=== PATIENT | female | born 1955 | race Caucasian/White ===

== ENCOUNTER 2020-03-30 00:08 | Day surgery (SDC) | payer BC, OTHER ==
[~2020-03-30 00:08] MED LIST: CAPE500 IV; CODACE30 PO; LISI20 PO; MORP15ER PO; NAPR220 PO; ONDA4 PO; OYSTER SHELL C500 MG PO; Vitamin D2000 UNIT PO
== END 2020-03-30 11:28 | disposition home or self-care (01) ==
LOC: ATC 00:08
DX: A40.8 Other streptococcal sepsis (principal); I33.0 Acute and subacute infective endocarditis; N17.9 Acute kidney failure, unspecified; K55.9 Vascular disorder of intestine, unspecified; E87.2 Acidosis; I95.9 Hypotension, unspecified; J96.91 Respiratory failure, unspecified with hypoxia; C50.919 Malignant neoplasm of unspecified site of unspecified female breast; C78.7 Secondary malignant neoplasm of liver and intrahepatic bile duct; C78.00 Secondary malignant neoplasm of unspecified lung; I10 Essential (primary) hypertension; Z87.891 Personal history of nicotine dependence; Z88.1 Allergy status to other antibiotic agents; K57.90 Diverticulosis of intestine, part unspecified, without perforation or abscess without bleeding; Z79.899 Other long term (current) drug therapy
CPT/HCPCS: 96365; J1335

== ENCOUNTER 2020-03-31 00:10 | Day surgery (SDC) | payer BC, OTHER | END 2020-03-31 10:32 | disposition home or self-care (01) | LOC: ATC 00:10 | DX: A40.8 Other streptococcal sepsis (principal); I33.0 Acute and subacute infective endocarditis; K55.9 Vascular disorder of intestine, unspecified; N17.9 Acute kidney failure, unspecified; E87.2 Acidosis; C50.919 Malignant neoplasm of unspecified site of unspecified female breast; C78.7 Secondary malignant neoplasm of liver and intrahepatic bile duct; C78.00 Secondary malignant neoplasm of unspecified lung; I95.9 Hypotension, unspecified; J96.91 Respiratory failure, unspecified with hypoxia; I10 Essential (primary) hypertension; Z87.891 Personal history of nicotine dependence; Z88.1 Allergy status to other antibiotic agents; Z79.899 Other long term (current) drug therapy | CPT/HCPCS: 96365; J1335 ==

== ENCOUNTER 2020-04-02 00:16 | Day surgery (SDC) | payer BC, OTHER | END 2020-04-02 10:29 | disposition home or self-care (01) | LOC: ATC 00:16 | DX: A40.8 Other streptococcal sepsis (principal); I33.0 Acute and subacute infective endocarditis; N17.9 Acute kidney failure, unspecified; K55.9 Vascular disorder of intestine, unspecified; E87.2 Acidosis; C50.919 Malignant neoplasm of unspecified site of unspecified female breast; C78.7 Secondary malignant neoplasm of liver and intrahepatic bile duct; C78.00 Secondary malignant neoplasm of unspecified lung; J96.91 Respiratory failure, unspecified with hypoxia; I10 Essential (primary) hypertension; Z87.891 Personal history of nicotine dependence; Z79.899 Other long term (current) drug therapy; Z88.1 Allergy status to other antibiotic agents; K57.30 Diverticulosis of large intestine without perforation or abscess without bleeding | CPT/HCPCS: 96365; J1335 ==

== ENCOUNTER 2020-04-03 00:19 | Day surgery (SDC) | payer BC, OTHER ==
[2020-04-03 11:10] LABS: BASOPHILS ABSOLUTE AUTO 0.06 K/mm3 (0.00-0.23); BASOPHILS PERCENT AUTO 1 % (0-2); EOSINOPHILS PERCENT AUTO 4 % (0-6); Hematocrit 27.7 % (33.0-51.0); IMMATURE GRAN ABSOLUTE AUTO 0.11 K/mm3 (0.00-0.10); IMMATURE GRAN PERCENT AUTO 2 % (0-1); LYMPHOCYTES ABSOLUTE AUTO 0.82 K/mm3 (0.84-5.20); LYMPHOCYTES PERCENT AUTO 15 % (21-46); MONOCYTES ABSOLUTE AUTO 0.52 K/mm3 (0.16-1.47); MONOCYTES PERCENT AUTO 10 % (4-13); Mean Corpuscular HGB Conc 32.5 g/dL (31.5-36.5); Mean Corpuscular Volume 105 fL (80-100); Mean Platelet Volume 8.9 fL (9.1-12.4); NEUTROPHILS ABSOLUTE AUTO 3.68 K/mm3 (1.96-9.15); NEUTROPHILS PERCENT AUTO 68 % (41-73); Platelet Count 238 K/mm3 (150-400); RDW Coefficient Variation 13.2 % (11.7-14.2); RDW Standard Deviation 50.1 fL (35.1-46.3); Red Blood Cell Count 2.65 M/mm3 (3.80-5.20); White Blood Cell Count 5.39 K/mm3 (4.00-11.30)
[2020-04-03 11:37] LABS: Alanine Aminotransfer (ALT/SGP 29 U/L (12-78); Albumin, Blood 2.5 g/dL (3.4-5.0); Albumin/Globulin Ratio 0.6 (0.8-1.8); Alk Phos 72 U/L (50-136); Aspartate Aminotrans (AST/SGOT 42 U/L (12-37); Bilirubin, Direct <0.1 mg/dL (0.0-0.3); Bilirubin, Indirect Unable to Calculate mg/dL (0.1-0.7); Bilirubin, Total 0.4 mg/dL (0.1-1.0); Blood Urea Nitrogen 12 mg/dL (8-24); Creatinine, Blood 0.94 mg/dL (0.40-1.00); Globulin, Blood 4.4 g/dL (2.2-4.0); Total Protein, Blood 6.9 g/dL (6.4-8.2)
--- NOTE | 2020-04-03 12:29 | NUR ---
LAB RESULTS FROM TODAY FAXED TO DR. MARSH'S OFFICE.
== END 2020-04-03 10:38 | disposition home or self-care (01) ==
LOC: ATC 00:19
DX: A40.8 Other streptococcal sepsis (principal); I33.0 Acute and subacute infective endocarditis; I95.9 Hypotension, unspecified; N17.9 Acute kidney failure, unspecified; E87.2 Acidosis; C50.919 Malignant neoplasm of unspecified site of unspecified female breast; C78.7 Secondary malignant neoplasm of liver and intrahepatic bile duct; C78.00 Secondary malignant neoplasm of unspecified lung; I10 Essential (primary) hypertension; K57.30 Diverticulosis of large intestine without perforation or abscess without bleeding; Z79.899 Other long term (current) drug therapy
CPT/HCPCS: 80076; 82565; 84520; 85025; 85651; 86140; 96365; J1335

== ENCOUNTER 2020-04-04 00:01 | Day surgery (SDC) | payer BC, OTHER | END 2020-04-04 10:40 | disposition home or self-care (01) | LOC: ATC 00:01 | DX: I33.0 Acute and subacute infective endocarditis (principal); I10 Essential (primary) hypertension; R73.03 Prediabetes; Z85.3 Personal history of malignant neoplasm of breast; Z79.899 Other long term (current) drug therapy; Z79.84 Long term (current) use of oral hypoglycemic drugs | CPT/HCPCS: 96365; J1335 ==

== ENCOUNTER 2020-04-05 00:13 | Day surgery (SDC) | payer BC, OTHER | END 2020-04-05 10:30 | disposition home or self-care (01) | LOC: ATC 00:13 | DX: I33.0 Acute and subacute infective endocarditis (principal); I10 Essential (primary) hypertension; R73.03 Prediabetes; Z85.3 Personal history of malignant neoplasm of breast; Z79.899 Other long term (current) drug therapy; Z79.84 Long term (current) use of oral hypoglycemic drugs | CPT/HCPCS: 96365; J1335 ==

== ENCOUNTER 2020-04-06 00:38 | Day surgery (SDC) | payer BC, OTHER | END 2020-04-06 10:35 | disposition home or self-care (01) | LOC: ATC 00:38 | DX: A40.8 Other streptococcal sepsis (principal); I33.0 Acute and subacute infective endocarditis; C50.919 Malignant neoplasm of unspecified site of unspecified female breast; C78.7 Secondary malignant neoplasm of liver and intrahepatic bile duct; C78.00 Secondary malignant neoplasm of unspecified lung; I10 Essential (primary) hypertension; J96.91 Respiratory failure, unspecified with hypoxia; N17.9 Acute kidney failure, unspecified; K55.9 Vascular disorder of intestine, unspecified; E87.2 Acidosis; I95.9 Hypotension, unspecified; Z79.899 Other long term (current) drug therapy; Z87.891 Personal history of nicotine dependence | CPT/HCPCS: 96365; J1335 ==

== ENCOUNTER 2020-04-07 00:16 | Day surgery (SDC) | payer BC, OTHER | END 2020-04-07 10:31 | disposition home or self-care (01) | LOC: ATC 00:16 | DX: A40.8 Other streptococcal sepsis (principal); I33.0 Acute and subacute infective endocarditis; K55.9 Vascular disorder of intestine, unspecified; N17.9 Acute kidney failure, unspecified; E87.2 Acidosis; J96.91 Respiratory failure, unspecified with hypoxia; C50.919 Malignant neoplasm of unspecified site of unspecified female breast; C78.00 Secondary malignant neoplasm of unspecified lung; C78.7 Secondary malignant neoplasm of liver and intrahepatic bile duct; I95.9 Hypotension, unspecified; I10 Essential (primary) hypertension; Z87.891 Personal history of nicotine dependence; Z79.899 Other long term (current) drug therapy; Z88.1 Allergy status to other antibiotic agents; Z20.828 Contact with and (suspected) exposure to other viral communicable diseases | CPT/HCPCS: 96365; J1335 ==

== ENCOUNTER 2020-04-08 00:06 | Day surgery (SDC) | payer BC, OTHER | END 2020-04-08 10:33 | disposition home or self-care (01) | LOC: ATC 00:06 | DX: A40.8 Other streptococcal sepsis (principal); I33.0 Acute and subacute infective endocarditis; C50.919 Malignant neoplasm of unspecified site of unspecified female breast; C78.7 Secondary malignant neoplasm of liver and intrahepatic bile duct; C78.00 Secondary malignant neoplasm of unspecified lung; I10 Essential (primary) hypertension; K55.9 Vascular disorder of intestine, unspecified; E87.2 Acidosis; N17.9 Acute kidney failure, unspecified; I95.9 Hypotension, unspecified; Z88.1 Allergy status to other antibiotic agents; Z87.891 Personal history of nicotine dependence; Z79.899 Other long term (current) drug therapy; J96.91 Respiratory failure, unspecified with hypoxia; Z20.828 Contact with and (suspected) exposure to other viral communicable diseases | CPT/HCPCS: 96365; J1335 ==

== ENCOUNTER 2020-04-13 00:05 | Day surgery (SDC) | payer BC, OTHER | END 2020-04-13 09:33 | disposition home or self-care (01) | LOC: ATC 00:05 | DX: A40.8 Other streptococcal sepsis (principal); I33.0 Acute and subacute infective endocarditis; C50.919 Malignant neoplasm of unspecified site of unspecified female breast; C78.7 Secondary malignant neoplasm of liver and intrahepatic bile duct; C78.00 Secondary malignant neoplasm of unspecified lung; N17.9 Acute kidney failure, unspecified; K55.9 Vascular disorder of intestine, unspecified; E87.2 Acidosis; I95.9 Hypotension, unspecified; J96.91 Respiratory failure, unspecified with hypoxia; I10 Essential (primary) hypertension; K57.30 Diverticulosis of large intestine without perforation or abscess without bleeding; Z87.891 Personal history of nicotine dependence; Z88.1 Allergy status to other antibiotic agents; Z20.828 Contact with and (suspected) exposure to other viral communicable diseases; Z79.899 Other long term (current) drug therapy | CPT/HCPCS: 96365; J1335 ==